=== PATIENT | male | born 1975 | race African-American/Black ===

== ENCOUNTER 2018-09-11 20:44 | Emergency (ER) | payer SELFPAY ==
[~2018-09-11] VITALS: Ht 180.3 cm; Wt 82.0 kg
[2018-09-11] MEDS ORDERED: FAMOTIDINE 20MG TABLET PO ONE (22:30)
[2018-09-11] MEDS ORDERED: IBUPROFEN 800MG TABLET PO ONE (22:30)
[2018-09-11] MEDS ORDERED: ONDANSETRON 4MG ODT PO ONE (22:30)
[2018-09-11 22:39] VITALS: BP 128/88
== END 2018-09-11 22:49 | disposition home or self-care (01) ==
LOC: ER 20:44
DX: G43.909 Migraine, unspecified, not intractable, without status migrainosus (principal)
CPT/HCPCS: 99284; Q0162

== ENCOUNTER 2019-02-03 05:16 | Emergency (ER) | payer BC ==
[~2019-02-03] VITALS: Ht 180.3 cm; Wt 82.0 kg
[2019-02-03] MEDS ORDERED: SODIUM CHLORIDE 0.9% 1,000 ML IV ONE (06:23)
[2019-02-03] MEDS ORDERED: KETOROLAC 30MG/ML VIAL IV STA (06:23)
[2019-02-03] MEDS ORDERED: METOCLOPRAMIDE HCL 10MG/2ML VIAL IV ONE (06:30)
[2019-02-03] MEDS ORDERED: DIPHENHYDRAMINE 50MG/ML VIAL IV ONE (06:30)
[2019-02-03 06:50] LABS: EOSINOPHILS % 1.7 % (0.0-5.0); HEMATOCRIT. 38.8 % (42.0-52.0); HEMOGLOBIN. 12.2 g/dL (14.0-18.0); LYMPHOCYTES % 13.3 % (20.0-50.0); MEAN CORPUSCULAR HEMOGLOBIN 25.7 pg (28.0-32.0); MEAN PLATELET VOLUME 8.1 fl (7.4-10.4); MONOCYTES % 7.1 % (2.0-8.0); NEUTROPHILS % 76.9 % (40.0-76.0); PLATELET 211 x1000/uL (130-400); RED BLOOD CELL COUNT 4.74 mill/uL (4.7-6.1); RED CELL DISTRIBUTION WIDTH 13.6 % (11.6-14.6)
[2019-02-03 06:56] LABS: CHLORIDE 111 mEq/L (98-107)
[2019-02-03 06:57] LABS: PROTHROMBIN TIME 9.9 sec (9.6-11.0)
[2019-02-03] MEDS ORDERED: HYDROCODONE/ACETAMINOPHEN 5/325MG TABLET PO ONE (07:45)
[2019-02-03] MEDS ORDERED: DEXAMETHASONE 10 MG/ML VIAL IV ONE (07:45)
[2019-02-03 07:52] VITALS: BP 123/72
== END 2019-02-03 08:11 | disposition home or self-care (01) ==
LOC: ER 05:16
DX: G43.909 Migraine, unspecified, not intractable, without status migrainosus (principal); F17.210 Nicotine dependence, cigarettes, uncomplicated; F12.10 Cannabis abuse, uncomplicated
CPT/HCPCS: 36415; 80053; 85025; 85610; 96374; 96375; 99283; J1100; J1200; J1885; J2765; J7030

== ENCOUNTER 2020-11-06 06:15 | Emergency (ER) | payer BC, MEDICAID ==
[~2020-11-06] VITALS: Ht 180.3 cm; Wt 83.1 kg
[2020-11-06] MEDS ORDERED: PANTOPRAZOLE SODIUM 40 MG/VIAL IV STA (07:03)
[2020-11-06] MEDS ORDERED: VISCOUS LIDOCAINE 2% 15 ML UDC PO STA (07:03)
[2020-11-06] MEDS ORDERED: ONDANSETRON HCL 4MG/2ML INJ IV STA (07:03)
[2020-11-06] MEDS ORDERED: MAGNESIUM/ALUMINUM HYDROXIDE/SIMETHICONE 30ML UDC PO STA (07:03)
[2020-11-06] MEDS ORDERED: SODIUM CHLORIDE 0.9% 1,000 ML IV ONE (07:15)
[2020-11-06 07:27] LABS: CHLORIDE 108 mEq/L (98-107)
[2020-11-06 07:29] LABS: HEMATOCRIT. 38.7 % (42.0-52.0); HEMOGLOBIN. 12.7 g/dL (14.0-18.0); MEAN CORPUSCULAR HEMOGLOBIN 26.8 pg (28.0-32.0); MEAN CORPUSCULAR VOLUME 81.5 fL (80.0-94.0); MEAN PLATELET VOLUME 7.8 fl (7.4-10.4); PLATELET 201 x1000/uL (130-400); RED BLOOD CELL COUNT 4.75 mill/uL (4.7-6.1); RED CELL DISTRIBUTION WIDTH 13.4 % (11.6-14.6)
[2020-11-06 07:31] LABS: PROTHROMBIN TIME 10.7 sec (9.6-11.0)
[2020-11-06 08:39] LABS: CLARITY URINE CLEAR (CLEAR); COLOR URINE YELLOW (YELLOW); KETONES URINE NEGATIVE (NEGATIVE); LEUKOCYTE ESTERASE URINE NEGATIVE (NEGATIVE); NITRITE URINE NEGATIVE (NEGATIVE); OCCULT BLOOD URINE NEGATIVE (NEGATIVE); PROTEIN URINE NEGATIVE (NEGATIVE); SPECIFIC GRAVITY URINE 1.007 (1.005-1.030); UROBILINOGEN URINE 0.2 E.U./dL (0.2-1.0)
[2020-11-06 08:53] VITALS: BP 116/76
[2020-11-06 08:57] LABS: *AMPHETAMINES SCREEN URINE NEGATIVE (NEGATIVE)
[2020-11-06 08:58] LABS: *BARBITURATES SCREEN URINE NEGATIVE (NEGATIVE); *BENZODIAZEPINES SCREEN URINE NEGATIVE (NEGATIVE); *COCAINE SCREEN URINE NEGATIVE (NEGATIVE); METHADONE URINE SCREEN NEGATIVE (NEGATIVE); OPIATES URINE SCREEN NEGATIVE (NEGATIVE)
[2020-11-06 08:59] LABS: CANNABINOID URINE SCREEN PRESUMTIVE POSITIVE (NEGATIVE); PHENCYCLIDINE URINE SCREEN NEGATIVE (NEGATIVE)
[2020-11-06 09:40] LABS: PLATELET ESTIMATE NORMAL
[2020-11-06] MEDS ORDERED: ONDA4TAB5 MT (09:59)
[2020-11-06] MEDS ORDERED: PROT40 MT (09:59)
[2020-11-06] MEDS ORDERED: MAG355OR21 MT (09:59)
== END 2020-11-06 10:55 | disposition home or self-care (01) ==
LOC: ER 06:15
DX: K29.70 Gastritis, unspecified, without bleeding (principal); K21.9 Gastro-esophageal reflux disease without esophagitis; F12.10 Cannabis abuse, uncomplicated
CPT/HCPCS: 36415; 71045; 76705; 80053; 80305; 81003; 83690; 85025; 85610; 96374; 96375; 99285; C9113; J2405; J7030

== ENCOUNTER 2023-06-10 19:32 | Emergency (ER) | payer BC, MEDICAID ==
[~2023-06-10] VITALS: Ht 177.8 cm; Wt 82.0 kg
[~2023-06-10 19:32] MED LIST: MAG355OR21 MT; ONDA4TAB5 MT; PROT40 MT
[2023-06-10 19:34] VITALS: BP 159/81; PULSE 120; RESP 18; TEMP 98.2; O2SAT 100
== END 2023-06-11 00:30 | disposition left against medical advice (07) ==
LOC: ER 19:32
DX: R10.9 Unspecified abdominal pain (principal); Z53.21 Procedure and treatment not carried out due to patient leaving prior to being seen by health care provider
CPT/HCPCS: 93005; 99281